=== PATIENT | male | born 1970 | race Caucasian/White ===

== ENCOUNTER 2020-08-09 09:55 | Inpatient (IN) | payer OTHER ==
[2020-08-09 10:35] VITALS: BMI 25.2
[2020-08-09] MEDS ORDERED: ACETAMINOPHEN 325 MG TABLET (FP) PO PRN ×2 (11:15)
[2020-08-09] MEDS ORDERED: MAGNESIUM HYDROX 2400MG/30ML ORAL SUSPENSION 30 ML CUP PO PRN (11:15)
[2020-08-09] MEDS ORDERED: BISMUTH SUBSALICYLATE 262 MG/15 ML BTL PO PRN (11:15)
[2020-08-09] MEDS ORDERED: ONDANSETRON *ODT* 4 MG TABLET SL PRN (11:15)
[2020-08-09] MEDS ORDERED: chlordiazePOXIDE HCL 25 MG CAPSULE PO PRN (11:15)
[2020-08-09] MEDS ORDERED: METHOCARBAMOL 500 MG TABLET PO PRN (11:15)
[2020-08-09] MEDS ORDERED: MENTHOL/PHENOL 1 EACH UD MM PRN (11:15)
[2020-08-09] MEDS ORDERED: IBUPROFEN 400 MG TABLET (FP) PO PRN (11:15)
[2020-08-09] MEDS ORDERED: MAGNESIUM CITRATE 300 ML BOTTLE PO PRN (11:15)
[2020-08-09] MEDS ORDERED: MAG HYDROX/AL HYDROX/SIMETH 30 ML UNIT-DOSE CUP PO PRN (11:15)
[2020-08-09] MEDS: PRENATAL VITAMINS W/ FOLIC ACID TABLET (FP) PO SCH (11:50)
[2020-08-09] MEDS: hydrOXYzine PAMOATE 25 MG CAPSULE (FP) PO SCH ×3 (14:01→22:52)
[2020-08-09 14:56] LABS: HEMATOCRIT 40.5 % (35.4-49); HEMOGLOBIN 13.5 GM/dL (11.7-16.9); MCH 34.5 pg (25.7-33.7); MCHC 33.3 g/dl (32.0-35.9); MEAN CELL VOLUME 103.7 fl (80-96); MEAN PLT VOLUME 8.9 fl (7.5-11.1); PLATELET COUNT 148 K/MM3 (134-434); RBC 3.91 M/mm3 (4.00-5.60); RDW 14.4 % (11.9-15.9)
[2020-08-09 15:06] LABS: CALCIUM 7.2 mg/dL (8.5-10.1)
[2020-08-09 15:07] LABS: ALBUMIN 3.9 g/dl (3.4-5.0)
[2020-08-09 15:10] LABS: CREATININE 0.7 mg/dL (0.55-1.3)
[2020-08-09 15:11] LABS: BILIRUBIN,TOTAL 1.1 mg/dL (0.2-1); TOT PROT 7.1 g/dl (6.4-8.2)
[2020-08-09] MEDS: chlordiazePOXIDE HCL 25 MG CAPSULE PO SCH ×2 (18:23→22:53)
[2020-08-09] MEDS ORDERED: MASKS NR ONE (18:36)
[2020-08-09] MEDS: MELATONIN 5 MG TABLETS PO SCH (22:52)
[2020-08-09] MEDS: THIAMINE HCL 100 MG TABLET (FP) PO SCH (22:53)
[2020-08-10] MEDS: hydrOXYzine PAMOATE 25 MG CAPSULE (FP) PO SCH ×2 (05:53→10:19)
[2020-08-10] MEDS: chlordiazePOXIDE HCL 25 MG CAPSULE PO SCH ×4 (05:53→22:51)
[2020-08-10] MEDS: PRENATAL VITAMINS W/ FOLIC ACID TABLET (FP) PO SCH (10:19)
[2020-08-10] MEDS ORDERED: cloNIDine HCL 0.1 MG TABLET PO ONE (12:50)
[2020-08-10] MEDS: hydrOXYzine PAMOATE 25 MG CAPSULE (FP) PO PRN (17:45)
[2020-08-10] MEDS: MELATONIN 5 MG TABLETS PO SCH (22:51)
[2020-08-10] MEDS: THIAMINE HCL 100 MG TABLET (FP) PO SCH (22:51)
[2020-08-11] MEDS: hydrOXYzine PAMOATE 25 MG CAPSULE (FP) PO PRN (05:54)
[2020-08-11] MEDS: chlordiazePOXIDE HCL 25 MG CAPSULE PO SCH ×4 (05:54→22:23)
[2020-08-11] MEDS: PRENATAL VITAMINS W/ FOLIC ACID TABLET (FP) PO SCH (10:19)
[2020-08-11] MEDS: MELATONIN 5 MG TABLETS PO SCH (22:23)
[2020-08-11] MEDS: THIAMINE HCL 100 MG TABLET (FP) PO SCH (22:23)
[2020-08-12] MEDS ORDERED: chlordiazePOXIDE HCL 10 MG CAPSULE PO PRN
[2020-08-12] MEDS: chlordiazePOXIDE HCL 10 MG CAPSULE PO SCH ×4 (06:51→22:09)
[2020-08-12] MEDS: PRENATAL VITAMINS W/ FOLIC ACID TABLET (FP) PO SCH (10:49)
[2020-08-12] MEDS: THIAMINE HCL 100 MG TABLET (FP) PO SCH (22:09)
[2020-08-12] MEDS: MELATONIN 5 MG TABLETS PO SCH (22:10)
[2020-08-13] MEDS ORDERED: chlordiazePOXIDE HCL 10 MG CAPSULE PO SCH (05:00)
[2020-08-13 06:16] VITALS: BP 121/82; PULSE 79; TEMP 96.9
[2020-08-13] MEDS: PRENATAL VITAMINS W/ FOLIC ACID TABLET (FP) PO SCH (11:15)
[2020-08-14] MEDS ORDERED: chlordiazePOXIDE HCL 10 MG CAPSULE PO ONE (05:00)
== END 2020-08-13 12:15 | disposition home or self-care (01) | DRG 775 ==
LOC: YASAS 09:55 → Y3N 11:16
PROVIDERS: ADMIT Allergy & Immunology; ATTEND Allergy & Immunology
PROC: HZ2ZZZZ Detoxification Services for Substance Abuse Treatment (ICD-10-PCS; principal; 2020-08-09)
DX: F10.230 Alcohol dependence with withdrawal, uncomplicated (principal); F10.24 Alcohol dependence with alcohol-induced mood disorder; F41.9 Anxiety disorder, unspecified; M79.601 Pain in right arm; M25.562 Pain in left knee; R73.9 Hyperglycemia, unspecified; Z87.81 Personal history of (healed) traumatic fracture; Z59.0 Homelessness
CPT/HCPCS: 36415; 80053; 82947; 85027; 86780; 93005; 93010; C9803; J0735; U0003; U0005

== ENCOUNTER 2023-10-02 15:24 | Inpatient (IN) | payer OTHER ==
[2023-10-02 16:00] VITALS: BMI 26.4
[2023-10-02] MEDS ORDERED: BENZONATATE 200 MG CAPSULE PO PRN (17:44)
[2023-10-02] MEDS ORDERED: BENZOCAINE/MENTHOL (CHLORASEPTIC ) LOZENGE MM PRN (17:44)
[2023-10-02] MEDS ORDERED: POLYETHYLENE GLYCOL (HEALTHYLAX) 3350 17 GM PACKET PO PRN (17:44)
[2023-10-02] MEDS ORDERED: guaiFENesin 600 MG TABLET.ER (FP) PO PRN (17:44)
[2023-10-02] MEDS ORDERED: ONDANSETRON *ODT* 4 MG TABLET SL PRN (17:44)
[2023-10-02] MEDS ORDERED: DICYCLOMINE HCL 10 MG CAPSULE PO PRN (17:44)
[2023-10-02] MEDS ORDERED: BISMUTH SUBSALICYLATE 524 MG/30 ML PO PRN (17:44)
[2023-10-02] MEDS ORDERED: MAG HYDROX/AL HYDROX/SIMETH 30 ML UNIT-DOSE CUP PO PRN (17:44)
[2023-10-02] MEDS ORDERED: MAGNESIUM HYDROX 2400MG/30ML ORAL SUSPENSION 30 ML CUP PO PRN (17:44)
[2023-10-02] MEDS ORDERED: LOPERAMIDE HCL 2 MG CAPSULE PO PRN (17:44)
[2023-10-02] MEDS ORDERED: amLODIPine BESYLATE 5 MG TABLET (FP) ONE (18:33)
[2023-10-02] MEDS: amLODIPine BESYLATE 5 MG TABLET (FP) PO ONE (18:36)
[2023-10-02] MEDS: chlordiazePOXIDE HCL 25 MG CAPSULE PO PRN (19:13)
[2023-10-02] MEDS: IBUPROFEN 600 MG TABLET (FP) PO PRN (19:14)
[2023-10-02] MEDS: levETIRAcetam 500 MG TABLET (FP) PO SCH (22:26)
[2023-10-02] MEDS: THIAMINE 100 MG TABLET PO SCH (22:26)
[2023-10-02] MEDS: MELATONIN 5 MG TABLETS PO SCH (22:27)
[2023-10-02] MEDS: chlordiazePOXIDE HCL 25 MG CAPSULE PO SCH (22:27)
[2023-10-03] MEDS: PRENATAL VITAMINS W/ FOLIC ACID TABLET (FP) PO SCH (10:11)
[2023-10-03 11:45] LABS: HEMATOCRIT 42.7 % (35.4-49); HEMOGLOBIN 14.7 GM/dL (11.7-16.9); MCH 34.4 pg (25.7-33.7); MCHC 34.4 g/dl (32.0-35.9); MEAN CELL VOLUME 100.2 fl (80-96); MEAN PLT VOLUME 9.4 fl (7.5-11.1); PLATELET COUNT 120 10^3/uL (134-434); RBC 4.26 M/mm3 (4.00-5.60); RDW 14.8 % (11.9-15.9); WHITE BLOOD COUNT 5.4 K/mm3 (4.0-10.0)
[2023-10-03 11:51] LABS: CHLORIDE 100 mmol/L (98-107); POTASSIUM 3.1 mmol/L (3.5-5.1); SODIUM 136 mmol/L (136-145)
[2023-10-03 11:58] LABS: CALCIUM 9.3 mg/dL (8.5-10.1)
[2023-10-03 11:59] LABS: ALBUMIN 3.7 g/dl (3.4-5.0); ANION GAP 8 mmol/L (4-13); CO2 29 mmol/L (21-32); GLUCOSE,RANDOM 118 mg/dL (74-106)
[2023-10-03 12:02] LABS: CREATININE 0.6 mg/dL (0.55-1.3); SGOT/AST 89 U/L (15-37); SGPT/ALT 58 U/L (13-61)
[2023-10-03 12:03] LABS: BILIRUBIN,TOTAL 1.7 mg/dL (0.2-1); TOT PROT 7.1 g/dl (6.4-8.2)
[2023-10-03 12:04] LABS: ALK PHOS 68 U/L (45-117)
[2023-10-03] MEDS: ACETAMINOPHEN 325 MG TABLET (FP) PO PRN (22:18)
[2023-10-04] MEDS: chlordiazePOXIDE HCL 25 MG CAPSULE PO SCH (05:29)
[2023-10-04] MEDS: POTASSIUM CHLORIDE ORAL LIQUID 20 MEQ/15 ML PO SCH (10:53)
[2023-10-04] MEDS: IBUPROFEN 400 MG TABLET (FP) PO PRN (18:04)
[2023-10-05] MEDS ORDERED: chlordiazePOXIDE HCL 10 MG CAPSULE PO PRN
[2023-10-05] MEDS: chlordiazePOXIDE HCL 10 MG CAPSULE PO SCH (05:33)
[2023-10-05] MEDS: METHOCARBAMOL 500 MG TABLET PO PRN (17:29)
[2023-10-06] MEDS: chlordiazePOXIDE HCL 10 MG CAPSULE PO SCH (05:46)
[2023-10-06] MEDS: hydrOXYzine PAMOATE 25 MG CAPSULE (FP) PO PRN (17:29)
[2023-10-07] MEDS: chlordiazePOXIDE HCL 10 MG CAPSULE PO ONE (05:21)
[2023-10-07 08:43] VITALS: RESP 18
[2023-10-07 12:32] VITALS: BP 138/94; PULSE 79; TEMP 97.3
== END 2023-10-07 12:25 | disposition other institution (70) | DRG 775 ==
LOC: YASAS 15:24 → Y6N 18:02
PROVIDERS: ADMIT Allergy & Immunology; ATTEND Surgery
PROC: HZ2ZZZZ Detoxification Services for Substance Abuse Treatment (ICD-10-PCS; principal; 2023-10-02)
DX: F10.230 Alcohol dependence with withdrawal, uncomplicated (principal); F41.9 Anxiety disorder, unspecified; E87.6 Hypokalemia; M25.561 Pain in right knee; M54.50 Low back pain, unspecified; G89.29 Other chronic pain; Z99.89 Dependence on other enabling machines and devices
CPT/HCPCS: 36415; 73562-TC-RT-FY; 80053; 80305; 80307; 84132; 85027; 86780; 93005; 93010

== ENCOUNTER 2024-04-22 21:43 | Inpatient (IN) | payer OTHER ==
[2024-04-22 22:11] VITALS: BMI 26.7
[2024-04-22] MEDS ORDERED: chlordiazePOXIDE HCL 25 MG CAPSULE PO PRN (22:19)
[2024-04-22] MEDS ORDERED: DICYCLOMINE HCL 10 MG CAPSULE PO PRN (22:20)
[2024-04-22] MEDS ORDERED: ONDANSETRON *ODT* 4 MG TABLET SL PRN (22:20)
[2024-04-22] MEDS ORDERED: BISMUTH SUBSALICYLATE 524 MG/30 ML PO PRN (22:20)
[2024-04-22] MEDS ORDERED: NICOTINE POLACRILEX 2 MG LOZENGE BC PRN (22:20)
[2024-04-22] MEDS ORDERED: NICOTINE POLACRILEX 2 MG GUM BUC PRN (22:20)
[2024-04-22] MEDS ORDERED: POLYETHYLENE GLYCOL (HEALTHYLAX) 3350 17 GM PACKET PO PRN (22:20)
[2024-04-22] MEDS ORDERED: MAG HYDROX/AL HYDROX/SIMETH 30 ML UNIT-DOSE CUP PO PRN (22:20)
[2024-04-22] MEDS ORDERED: guaiFENesin 600 MG TABLET.ER (FP) PO PRN (22:20)
[2024-04-22] MEDS ORDERED: BENZONATATE 200 MG CAPSULE PO PRN (22:20)
[2024-04-22] MEDS ORDERED: ACETAMINOPHEN 325 MG TABLET (FP) PO PRN (22:20)
[2024-04-22] MEDS ORDERED: MAGNESIUM HYDROX 2400MG/30ML ORAL SUSPENSION 30 ML CUP PO PRN (22:20)
[2024-04-22] MEDS ORDERED: IBUPROFEN 400 MG TABLET (FP) PO PRN (22:20)
[2024-04-22] MEDS ORDERED: BENZOCAINE/MENTHOL (CHLORASEPTIC ) LOZENGE MM PRN (22:20)
[2024-04-22] MEDS ORDERED: METOPROLOL TARTRATE 25 MG TABLET (FP) ONE (23:15)
[2024-04-22] MEDS ORDERED: chlordiazePOXIDE HCL 25 MG CAPSULE ONE (23:15)
[2024-04-22] MEDS: chlordiazePOXIDE HCL 25 MG CAPSULE PO SCH (23:22)
[2024-04-22] MEDS: METOPROLOL TARTRATE 25 MG TABLET (FP) PO ONE (23:23)
[2024-04-22] MEDS: hydrOXYzine PAMOATE 25 MG CAPSULE (FP) PO PRN (23:39)
[2024-04-22] MEDS: METHOCARBAMOL 500 MG TABLET PO PRN (23:39)
[2024-04-22] MEDS: IBUPROFEN 600 MG TABLET (FP) PO PRN (23:39)
[2024-04-23] MEDS: LOPERAMIDE HCL 2 MG CAPSULE PO PRN (05:56)
[2024-04-23] MEDS: PRENATAL VITAMINS W/ FOLIC ACID TABLET (FP) PO SCH (10:20)
[2024-04-23 11:34] LABS: HEMATOCRIT 45.7 % (35.4-49); HEMOGLOBIN 15.4 GM/dL (11.7-16.9); MCH 33.2 pg (25.7-33.7); MCHC 33.7 g/dl (32.0-35.9); MEAN CELL VOLUME 98.6 fl (80-96); MEAN PLT VOLUME 9.8 fl (7.5-11.1); PLATELET COUNT 107 10^3/uL (134-434); RBC 4.64 M/mm3 (4.00-5.60); RDW 16.9 % (11.9-15.9); WHITE BLOOD COUNT 5.5 K/mm3 (4.0-10.0)
[2024-04-23 13:30] LABS: CHLORIDE 95 mmol/L (98-107); POTASSIUM 3.9 mmol/L (3.5-5.1); SODIUM 133 mmol/L (136-145)
[2024-04-23 13:32] LABS: ALBUMIN 4.3 g/dl (3.4-5.0)
[2024-04-23 13:33] LABS: BLOOD UREA NITROGEN 10.2 mg/dL (7-18); GLUCOSE,RANDOM 96 mg/dL (74-106)
[2024-04-23 13:34] LABS: CALCIUM 9.3 mg/dL (8.5-10.1)
[2024-04-23 13:35] LABS: ANION GAP 9 mmol/L (4-13); CO2 29 mmol/L (21-32)
[2024-04-23 13:37] LABS: BILIRUBIN,TOTAL 2.9 mg/dL (0.2-1); CREATININE 0.9 mg/dL (0.55-1.3); SGOT/AST 80 U/L (15-37); SGPT/ALT 59 U/L (13-61); TOT PROT 7.8 g/dl (6.4-8.2)
[2024-04-23 13:38] LABS: ALK PHOS 62 U/L (45-117)
[2024-04-23] MEDS: MELATONIN 5 MG TABLETS PO SCH (22:09)
[2024-04-23] MEDS: THIAMINE 100 MG TABLET PO SCH (22:09)
[2024-04-24] MEDS: chlordiazePOXIDE HCL 25 MG CAPSULE PO SCH (05:31)
[2024-04-25] MEDS ORDERED: chlordiazePOXIDE HCL 10 MG CAPSULE PO PRN
[2024-04-25] MEDS: chlordiazePOXIDE HCL 10 MG CAPSULE PO SCH (05:29)
[2024-04-26] MEDS: chlordiazePOXIDE HCL 10 MG CAPSULE PO SCH (05:37)
[2024-04-26 05:50] VITALS: RESP 16
[2024-04-26] MEDS: NALOXONE (NYS OPIOID OVERDOSE PROGRAM) 4 MG/0.1 ML SPRAY NS SCH (09:57)
[2024-04-26 09:59] VITALS: BP 142/108; PULSE 98; TEMP 97.3
[2024-04-27] MEDS ORDERED: chlordiazePOXIDE HCL 10 MG CAPSULE PO ONE (05:00)
== END 2024-04-26 10:02 | disposition home or self-care (01) | DRG 775 ==
LOC: YASAS 21:43 → Y3N 23:03
PROVIDERS: ADMIT Allergy & Immunology; ATTEND Surgery
PROC: HZ2ZZZZ Detoxification Services for Substance Abuse Treatment (ICD-10-PCS; principal; 2024-04-22)
DX: F10.230 Alcohol dependence with withdrawal, uncomplicated (principal); F41.9 Anxiety disorder, unspecified; M54.50 Low back pain, unspecified; G89.29 Other chronic pain; Z99.89 Dependence on other enabling machines and devices; Z59.01 Sheltered homelessness
CPT/HCPCS: 36415; 80053; 80305; 80307; 85027; 86780; 86803